=== PATIENT | male | born 1970 | race Caucasian/White ===

== ENCOUNTER 2019-08-10 18:44 | Emergency (ER) | payer SELFPAY ==
[~2019-08-10] VITALS: Ht 167.6 cm; Wt 79.0 kg
[2019-08-10] MEDS ORDERED: ONDANSETRON HCL 4MG/2ML INJ IV STA (19:58)
[2019-08-10] MEDS ORDERED: SODIUM CHLORIDE 0.9% 1,000 ML IV ONE (19:58)
[2019-08-10] MEDS ORDERED: LORAZEPAM 2MG/ML CPJ IM ONE (20:15)
[2019-08-10 22:16] LABS: BASOPHILS % 1.8 % (0.0-2.0); EOSINOPHILS % 1.1 % (0.0-5.0); HEMATOCRIT. 37.1 % (42.0-52.0); HEMOGLOBIN. 11.5 g/dL (14.0-18.0); LYMPHOCYTES % 54.4 % (20.0-50.0); MEAN CORPUSCULAR HEMOGLOBIN 22.5 pg (28.0-32.0); MEAN CORPUSCULAR VOLUME 72.6 fL (80.0-94.0); MEAN PLATELET VOLUME 8.6 fl (7.4-10.4); NEUTROPHILS % 30.7 % (40.0-76.0); PLATELET 110 x1000/uL (130-400); RED CELL DISTRIBUTION WIDTH 24.6 % (11.6-14.6)
[2019-08-10 22:56] LABS: PLATELET ESTIMATE DECREASED
[2019-08-10 23:49] LABS: CHLORIDE 112 mEq/L (98-107)
[2019-08-11 00:27] LABS: ETHANOL BLOOD 325 mg/dL
[2019-08-11 02:13] VITALS: BP 120/62
== END 2019-08-11 02:17 | disposition home or self-care (01) ==
LOC: ER 18:44
DX: T51.0X1A Toxic effect of ethanol, accidental (unintentional), initial encounter (principal); G92 Toxic encephalopathy; E11.9 Type 2 diabetes mellitus without complications; F10.20 Alcohol dependence, uncomplicated; R27.0 Ataxia, unspecified; I49.9 Cardiac arrhythmia, unspecified; Y92.89 Other specified places as the place of occurrence of the external cause; Y90.8 Blood alcohol level of 240 mg/100 ml or more
CPT/HCPCS: 36415; 80053; 80320; 83880; 84484; 85025; 93005; 96372; 99285; J2060; J2405; J7030; G0480